=== PATIENT | female | born 1985 | race Hispanic/Latino ===

== ENCOUNTER 2021-05-30 06:39 | Emergency (ER) | payer SELFPAY ==
[~2021-05-30] VITALS: Ht 152.4 cm; Wt 105.7 kg
== END 2021-05-30 08:05 | disposition home or self-care (01) ==
LOC: ER 06:59
DX: K59.00 Constipation, unspecified (principal)
CPT/HCPCS: 99282

== ENCOUNTER 2022-05-07 16:21 | Emergency (ER) | payer MEDICARE ==
[~2022-05-07] VITALS: Ht 152.4 cm; Wt 105.7 kg
[2022-05-07] MEDS ORDERED: CLINDAMYCIN HCL 150 MG CAP PO ONE (16:45)
[2022-05-07] MEDS ORDERED: CLINDAMYCIN HCL 150 MG CAP ONE (16:51)
== END 2022-05-07 16:50 | disposition home or self-care (01) ==
LOC: ER 16:44
DX: L02.211 Cutaneous abscess of abdominal wall (principal)
CPT/HCPCS: 99283